=== PATIENT | female | born 1990 | race Two or more races ===

== ENCOUNTER 2022-12-03 09:33 | Inpatient (IN) | payer MEDICAID, OTHER ==
[~2022-12-03] VITALS: Ht 157.5 cm; Wt 88.5 kg
[2022-12-03 10:09] LABS: Hemoglobin 10.8 g/dL (12.2-16.2); Red Blood Cells 5.37 10^6/uL (4.0-5.20); Red Cell Distribution Width 16.3 % (11.8-14.3)
[2022-12-03 10:12] LABS: Hematocrit 33.9 % (36.0-46.0); Mean Corpuscular Hemoglobin 20.1 pg (28.0-32.0); Mean Corpuscular Hgb Conc. 31.7 g/dL (32.0-36.0); Mean Corpuscular Volume 63.2 fL (80.0-100.0); White Blood Cell 14.9 10^3/uL (4.4-10.8)
[2022-12-03] MEDS ORDERED: SODIUM CHLORIDE 0.9% 1,000 ML IV ONE ×3 (10:15→10:45)
[2022-12-03] MEDS ORDERED: cefTRIAXone 1GM/50ML D5W 50 ML IV ONE (10:15)
[2022-12-03] MEDS ORDERED: CLINDAMYCIN 600MG IV 50 ML IV ONE (10:15)
[2022-12-03 10:19] LABS: Basophils % (manual) 0 (0.0-2.0); Blast Cells 0; Metamyelocytes % 0; Myelocytes % 0; Promyelocytes % 0; Reactive Lymphocytes 0
[2022-12-03 10:30] LABS: Calcium 8.3 mg/dL (8.5-10.1)
[2022-12-03] MEDS ORDERED: ACETAMINOPHEN 325 MG TAB PO ONE (10:30)
[2022-12-03 10:38] LABS: Albumin 2.9 g/dL (3.4-5.0); BUN/Creatinine Ratio 16.7 (10.0-20.0); Bilirubin, Total 0.6 mg/dL (0.2-1.0)
[2022-12-03 10:54] LABS: Potassium 2.8 mmol/L (3.5-5.1)
[2022-12-03 10:59] LABS: Band Neutrophils % (manual) 4; Eosinophils % (manual) 1 (0-7); Lymphocytes % (manual) 7 (10.0-50.0); Monocytes % (manual) 4 (0-12)
[2022-12-03] MEDS: POTASSIUM CHL 20MEQ/100ML 100 ML IV SCH ×5 (11:08→22:08)
[2022-12-03 13:17] LABS: Urine Bacteria FEW /hpf (None Seen); Urine Blood TRACE /uL (Negative); Urine Mucus FEW (None Seen); Urine Specific Gravity 1.013 (1.001-1.035); Urine WBC 16 /hpf (0 - 5)
[2022-12-03] MEDS ORDERED: VANCOMYCIN PER PHARMACY 0 MG IV SCH (16:15)
[2022-12-03] MEDS ORDERED: ONDANSETRON HCL 4 MG/2 ML VIAL IV PRN (16:15)
[2022-12-03] MEDS ORDERED: NITROGLYCERIN 0.4 MG SL TAB SL PRN (16:15)
[2022-12-03] MEDS ORDERED: MAGNESIUM SULFATE 1GM/100ML 100 ML IV ONE (16:15)
[2022-12-03] MEDS ORDERED: MORPHINE SULFATE INJ 2 MG/ml SYRG IV PRN (16:15)
[2022-12-03] MEDS ORDERED: DEXTROSE (50%) 50ML SYRG IV PRN (17:15)
[2022-12-03] MEDS ORDERED: VANCOMYCIN 1GM/250ML 250 ML IV ONE (17:45)
[2022-12-03] MEDS: SODIUM CHLORIDE 0.9% 1,000 ML IV SCH (18:05)
[2022-12-03 18:53] LABS: Alcohol, Urine < 3.0 mg/dL (0-10); Amphetamine Screen, Urine NEGATIVE (NEGATIVE); Barbiturate Scree,Urine NEGATIVE (NEGATIVE); Benzodiazephine Screen, Urine NEGATIVE (NEGATIVE); Cannabinoid Screen, Urine NEGATIVE (NEGATIVE); Cocaine Screen, Urine NEGATIVE (NEGATIVE); Opiate Scree,Urine NEGATIVE (NEGATIVE); Phencyclidine Screen, Urine NEGATIVE (NEGATIVE)
[2022-12-03] MEDS: DexAMETHasone SOD PHOS 10MG/1ML VIAL INJ IV SCH (19:09)
[2022-12-03] MEDS ORDERED: ACETAMINOPHEN 325 MG TAB PO PRN (19:15)
[2022-12-03 21:38] LABS: BUN/Creatinine Ratio 17.5 (10.0-20.0); Calcium 7.2 mg/dL (8.5-10.1); Potassium 3.1 mmol/L (3.5-5.1)
[2022-12-03 21:39] LABS: % Iron Saturation 3.3 % (15-50)
[2022-12-03] MEDS: InsuLIN REG 1unit/0.01ml Soln (100units/ml) SC SCH (22:00)
[2022-12-03] MEDS: ACCU-CHEK COMFORT CURVE STRIP VI SCH (22:00)
[2022-12-03] MEDS: CLINDAMYCIN 600MG IV 50 ML IV SCH (22:09)
[2022-12-03] MEDS ORDERED: POTASSIUM EFFERVESENT TAB 25 MEQ PO ONE (22:15)
[2022-12-04] MEDS: SODIUM CHLORIDE 0.9% 1,000 ML IV SCH ×3 (03:56→20:36)
[2022-12-04] MEDS: VANCOMYCIN 1GM/250ML 250 ML IV SCH ×3 (04:08→20:30)
[2022-12-04] MEDS: CLINDAMYCIN 600MG IV 50 ML IV SCH (06:17)
[2022-12-04 06:39] LABS: Basophils # (auto) 0.1 10 ^3/uL (0-0.2); Basophils % (auto) 0.4 % (0.0-2.0); Eosinophils # (auto) 0 10 ^3/uL (0-0.8); Hemoglobin 8.8 g/dL (12.2-16.2); Lymphocytes # (auto) 1.4 10 ^3/uL (0.4-5.4); Red Blood Cells 4.38 10^6/uL (4.0-5.20)
[2022-12-04 06:41] LABS: Eosinophils % (auto) 0.3 % (0.0-7.0); Lymphocytes % (auto) 8.3 % (10.0-50.0); Mean Corpuscular Hemoglobin 20.1 pg (28.0-32.0); Mean Corpuscular Hgb Conc. 31.4 g/dL (32.0-36.0); Mean Corpuscular Volume 63.8 fL (80.0-100.0); Monocytes # (auto) 0.5 10 ^3/uL (0-1.3); Monocytes % (auto) 2.8 % (0.0-12.0); Neutrophils # (auto) 14.9 10 ^3/uL (1.6-8.6); Neutrophils % (auto) 88.2 % (37.0-80.0); Red Cell Distribution Width 16.5 % (11.8-14.3); White Blood Cell 16.8 10^3/uL (4.4-10.8)
[2022-12-04 06:44] LABS: Albumin 2.2 g/dL (3.4-5.0); Calcium 7.2 mg/dL (8.5-10.1); Potassium 3.4 mmol/L (3.5-5.1)
[2022-12-04] MEDS: ACCU-CHEK COMFORT CURVE STRIP VI SCH ×4 (06:44→22:48)
[2022-12-04] MEDS: InsuLIN REG 1unit/0.01ml Soln (100units/ml) SC SCH ×4 (06:44→22:44)
[2022-12-04 06:47] LABS: BUN/Creatinine Ratio 19.4 (10.0-20.0); Bilirubin, Total 0.6 mg/dL (0.2-1.0); Total Protein 6.6 g/dL (6.4-8.2)
[2022-12-04] MEDS ORDERED: cefTRIAXone 1GM/50ML D5W 50 ML IV ONE (09:15)
[2022-12-04] MEDS: DexAMETHasone SOD PHOS 10MG/1ML VIAL INJ IV SCH (11:21)
[2022-12-04] MEDS: PANTOPRAZOLE 40 MG/10 ML VIAL INJ IV SCH (11:21)
[2022-12-04] MEDS: SODIUM CHLORIDE 0.9% 1,000 ML IV ONE ×2 (11:45→13:33)
[2022-12-04 22:00] VITALS: BP 106/63
[2022-12-05] MEDS: VANCOMYCIN 1GM/250ML 250 ML IV SCH ×2 (02:39→10:07)
[2022-12-05] MEDS: SODIUM CHLORIDE 0.9% 1,000 ML IV SCH ×2 (02:47→08:36)
[2022-12-05 05:00] VITALS: BP 113/67
[2022-12-05 06:18] LABS: Hemoglobin 7.8 g/dL (12.2-16.2); White Blood Cell 16.7 10^3/uL (4.4-10.8)
[2022-12-05 06:20] LABS: Hematocrit 24.9 % (36.0-46.0); Mean Corpuscular Hemoglobin 20.2 pg (28.0-32.0); Mean Corpuscular Hgb Conc. 31.2 g/dL (32.0-36.0); Mean Corpuscular Volume 64.5 fL (80.0-100.0); Red Blood Cells 3.85 10^6/uL (4.0-5.20); Red Cell Distribution Width 16.8 % (11.8-14.3)
[2022-12-05] MEDS: ACCU-CHEK COMFORT CURVE STRIP VI SCH ×2 (06:23→11:41)
[2022-12-05] MEDS: InsuLIN REG 1unit/0.01ml Soln (100units/ml) SC SCH ×2 (06:30→11:30)
[2022-12-05 06:31] LABS: BUN/Creatinine Ratio 22.2 (10.0-20.0); Calcium 8.1 mg/dL (8.5-10.1); Magnesium 2.2 mg/dL (1.6-2.6); Potassium 3.7 mmol/L (3.5-5.1)
[2022-12-05 07:06] LABS: RPR Non Reactive (Non Reactive)
[2022-12-05 07:12] LABS: Band Neutrophils % (manual) 0; Basophils % (manual) 0 (0.0-2.0); Blast Cells 0; Eosinophils % (manual) 0 (0-7); Metamyelocytes % 0; Myelocytes % 0; Promyelocytes % 0; Reactive Lymphocytes 0
[2022-12-05 09:00] VITALS: BP 112/67
[2022-12-05] MEDS ORDERED: cefTRIAXone 1GM/50ML D5W 50 ML IV SCH (09:00)
[2022-12-05] MEDS: DexAMETHasone SOD PHOS 10MG/1ML VIAL INJ IV SCH (10:07)
[2022-12-05] MEDS: PANTOPRAZOLE 40 MG/10 ML VIAL INJ IV SCH (10:07)
[2022-12-05] MEDS ORDERED: AUG875T PO (11:46)
[2022-12-05 12:00] LABS: Lymphocytes % (manual) 18 (10.0-50.0); Monocytes % (manual) 2 (0-12)
[2022-12-05 12:43] VITALS: BP 108/59
[2022-12-05 13:00] VITALS: BP 108/59
[2022-12-06 10:24] LABS: Hepatitis A Ab IgM Negative; Hepatitis B Core IgM Negative; Hepatitis C Antibody Negative (Negative)
== END 2022-12-05 14:18 | disposition home or self-care (01) | DRG 720 ==
LOC: ER 09:33 → TELE 16:38 → TELE-WESTW 12-04 10:20
PROVIDERS: ADMIT Nurse Practitioner Family; ATTEND Internal Medicine Geriatric Medicine
DX: A41.9 Sepsis, unspecified organism (principal); N17.9 Acute kidney failure, unspecified; E44.0 Moderate protein-calorie malnutrition; E87.1 Hypo-osmolality and hyponatremia; I10 Essential (primary) hypertension; E87.6 Hypokalemia; N30.00 Acute cystitis without hematuria; D50.9 Iron deficiency anemia, unspecified; E86.0 Dehydration; J98.11 Atelectasis; Z20.822 Contact with and (suspected) exposure to COVID-19; H92.01 Otalgia, right ear; R74.01 Elevation of levels of liver transaminase levels; J02.0 Streptococcal pharyngitis; Z68.35 Body mass index [BMI] 35.0-35.9, adult
CPT/HCPCS: 36415; 70491; 71045; 76705; 80048; 80053; 80074; 80202; 80307; 80320; 81001; 82962; 83036; 83540; 83550; 83605; 83735; 84439; 84443; 84702; 85007; 85025; 85027; 86592; 86703; 87040; 87086; 87426; 87880; 96365; 96366; 96367; 96368; C9113; G0378; J0696; J1100; J1815; J3480; J3490